=== PATIENT | male | born 1960 | race Caucasian/White ===

== ENCOUNTER 2017-10-25 12:10 | Emergency (ER) | payer OTHER ==
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
[2017-10-25] MEDS: Ketorolac 60 MG/2 ML SDV IM ONE ×2 (13:12→13:19)
--- NOTE | 2017-10-25 13:20 | CR ---
Heart size upper limits of normal. Pulmonary vasculature within normal limits. No focal consolidation . Nodular densities within each midlung may reflect nipple shadows and would recommend follow-up with nipple markers. These persists would recommend an CT follow-up to exclude a pulmonary nodule.
== END 2017-10-25 13:39 | disposition home or self-care (01) ==
LOC: JP.ED 12:10
DX: S40.011A Contusion of right shoulder, initial encounter (principal); J40 Bronchitis, not specified as acute or chronic; R55 Syncope and collapse; F17.210 Nicotine dependence, cigarettes, uncomplicated; E78.00 Pure hypercholesterolemia, unspecified; V57.5XXA Driver of pick-up truck or van injured in collision with fixed or stationary object in traffic accident, initial encounter; Y92.821 Forest as the place of occurrence of the external cause
CPT/HCPCS: 71046; 96372; 99284; J1885